=== PATIENT | female | born 1985 | race Caucasian/White ===

== ENCOUNTER 2018-08-02 17:28 | Emergency (ER) | payer BC ==
[~2018-08-02] VITALS: Ht 157.5 cm; Wt 59.0 kg
[2018-08-02 17:32] VITALS: BP 128/84
--- NOTE | 2018-08-02 18:00 | NUR ---
C/O SUPRAPUBIC PAIN X1 HOUR. PT REPORTS CONSTANT SHARP/HOT/PRESSURE PAIN AT 10/10 THAT RADIATES TO BILATERAL GROIN. PT REPORTS PAIN WITH URINATION. LAST BM THIS MORNING WAS SOLID, PT DENIES DIARRHEA. NO FEVER, COUGH, OR CP. . DENIES N/V/D; SKIN IS PINK/WARM/DRY; AAOX4 WITH EVEN AND STEADY GAIT; LUNGS CLEAR BL; HR EVEN AND REGULAR; PT DENIES ANY FEVER, CP, SOB, OR COUGH AT THIS TIME; VSS; PATIENT POSITIONED FOR COMFORT; HOB ELEVATED; BEDRAILS UP X2; BED DOWN. ER MD MADE AWARE OF PT STATUS.
[2018-08-02 18:32] LABS: APPEARANCE,URINE CLEAR (CLEAR); BILIRUBIN,URINE NEGATIVE (NEGATIVE); BLOOD, URINE TRACE-L (NEGATIVE); COLOR,URINE YELLOW (YELLOW); LEUKOCYTE ESTERASE ,URINE NEGATIVE (NEGATIVE); NITRITE, URINE NEGATIVE (NEGATIVE); UGLUCOSE NEGATIVE (NEGATIVE)
--- NOTE | 2018-08-02 19:05 | NUR ---
REPORT RECEIVED FROM RAFAEL RESENDIZ.
[2018-08-02 20:33] LABS: BASOPHILS % (AUTO) 0.2 % (0.0-2.0); EOSINOPHILS % (AUTO) 0.1 % (0.0-4.0); HEMATOCRIT 37.9 % (36-48); HEMOGLOBIN 12.9 g/dL (12.0-16.0); LYMPHOCYTES # (AUTO) 1.1 K/uL (2.5-16.5); LYMPHOCYTES % (AUTO) 6.9 % (20.5-51.1); MEAN CORPUSCULAR HEMOGLOBIN 29 pg (27-31); MEAN CORPUSCULAR HGB CONC 34 g/dL (33-37); MONOCYTES # (AUTO) 0.6 K/uL (0.8-1.0); MONOCYTES % (AUTO) 3.7 % (1.7-9.3); NEUTROPHILS # (AUTO) 14.6 K/uL (1.8-7.7); NEUTROPHILS % (AUTO) 89.1 % (42.2-75.2); PLATELET COUNT (AUTO) 261 K/uL (140-450); RED BLOOD CELL COUNT(AUTO) 4.41 MIL/uL (4.20-5.40); RED CELL DISTRIBUTION WIDTH 12.9 % (11.6-13.7); WHITE BLOOD COUNT (AUTO) 16.3 K/uL (4.8-10.8)
[2018-08-02 20:49] LABS: ANION GAP 12.3 (8-16); CARBON DIOXIDE 24.1 mmol/L (21-32); CREATININE 0.7 mg/dL (0.6-1.3); POTASSIUM 3.4 mmol/L (3.5-5.1)
[2018-08-02 20:54] LABS: ALBUMIN 3.5 g/dL (3.4-5.0); TOTAL BILIRUBIN 0.2 mg/dL (0.0-1.0)
[2018-08-02 21:13] VITALS: BP 131/72
--- NOTE | 2018-08-02 21:13 | NUR ---
DISCHARGE PAPERS GIVEN TO PT. 0/10 PAIN. NO N/V. VSS. RX OF MOTRIN GIVEN. SIDE EFFECTS EXPLAINED. INSTRUCTED TO F/U WITH PCP AND WHEN TO RETURN TO ER. VERBALIZED UNDERSTANDING OF DC INSTRUCTIONS. ALL QUETIONS ANSWERED.
== END 2018-08-02 21:13 | disposition home or self-care (01) ==
LOC: MED 17:28
DX: N94.6 Dysmenorrhea, unspecified (principal); Z88.0 Allergy status to penicillin
CPT/HCPCS: 36415; 76856; 80053; 81002; 81003; 81025; 84702; 85025; 86901; 99284; Q0092